=== PATIENT | female | born 1990 | race Caucasian/White ===

== ENCOUNTER 2016-08-25 16:49 | Emergency (ER) | payer OTHER ==
[2016-08-25 17:11] VITALS: BP 133/81; PULSE 94; RESP 20; TEMP 97.5
[2016-08-25] MEDS ORDERED: ORPHENADRINE 30 MG/ML 2 ML VIAL IM STA (17:32)
[2016-08-25] MEDS ORDERED: KETOROLAC 60 MG/2 ML VIAL IM STA (17:32)
--- NOTE | 2016-08-25 17:38 | ED ---
Back Pain HPI - General Chief Complaint: Back Pain/Injury Stated Complaint: Back Pain Time Seen by Provider: 08/25/16 17:11 Source: patient, RN notes reviewed, old records reviewed Limitations: no limitations - History of Present Illness Initial Comments: 26-year-old female presents to the ED chief complaint of right sided lower back pain while walking into work today. Patient reports that she was taking his Depakote work and felt a sudden twinge in her back. Patient denies any falls or recent causes for injury of her back. Patient states that she has no fever or chills, denies any pain rating down her legs. Patient reports that she could possibly be . She states that she lays starting her menstrual cycle. She denies any fever or chills, chest pain, shortness breath, abdominal pain, nausea or vomiting. - Related Data Previous Rx's Medication Instructions Recorded predniSONE 50 mg PO DAILY #5 tab 02/28/16 Cyclobenzaprine [Flexeril] 10 mg PO TID #12 tab 08/25/16 Allergies Allergy/AdvReac Type Severity Reaction Status Date / Time No Known Allergies Allergy Verified 08/25/16 17:11 Review of Systems ROS Statement: Those systems with pertinent positive or pertinent negative responses have been documented in the HPI. ROS Other: All systems not noted in ROS Statement are negative. Past Medical History Past Medical History: Asthma Additional Past Medical History / Comment(s): Anxiety History of Any Multi-Drug Resistant Organisms: None Reported Past Surgical History: Tonsillectomy Past Anesthesia/Blood Transfusion Reactions: No Reported Reaction Past Psychological History: Anxiety Smoking Status: Current some day smoker Past Alcohol Use History: None Reported Past Drug Use History: None Reported - Past Family History Father Family Medical History: No Reported History General Exam - General Exam Comments Initial Comments: Well-appearing 26-year-old female. No distress. Limitations: no limitations General appearance: alert, in no apparent distress Head exam: Present: atraumatic, normocephalic, normal inspection Eye exam: Present: normal appearance, PERRL, EOMI. Absent: scleral icterus, conjunctival injection, periorbital swelling ENT exam: Present: normal exam, mucous membranes moist Neck exam: Present: normal inspection. Absent: tenderness, meningismus, lymphadenopathy Respiratory exam: Present: normal lung sounds bilaterally. Absent: respiratory distress, wheezes, rales, rhonchi, stridor Cardiovascular Exam: Present: regular rate, normal rhythm, normal heart sounds. Absent: systolic murmur, diastolic murmur, rubs, gallop, clicks GI/Abdominal exam: Present: soft, normal bowel sounds. Absent: distended, tenderness, guarding, rebound, rigid Extremities exam: Present: normal inspection, full ROM, normal capillary refill. Absent: tenderness, pedal edema, joint swelling, calf tenderness Back exam: Present: normal inspection, muscle spasm (Right-sided lumbar muscle spasm), paraspinal tenderness (Right sided lumbar paraspinal tenderness.), vertebral tenderness Neurological exam: Present: alert, oriented X3, CN II-XII intact Psychiatric exam: Present: normal affect, normal mood Skin exam: Present: warm, dry, intact, normal color. Absent: rash Course Vital Signs 08/25/16 17:09 Temperature 97.5 F L Pulse Rate 94 Respiratory 20 Rate Blood Pressure 133/81 O2 Sat by Pulse 97 Oximetry Medical Decision Making - Medical Decision Making 26-year-old female presents to the ED chief complaint of right sided lower back pain while walking into work today. Patient reports that she was taking his DepCamileon Heelste work and felt a sudden twinge in her back. Patient denies any falls or recent causes for injury of her back. Patient states that she has no fever or chills, denies any pain rating down her legs. Patient's urine test is negative as well as no signs of urinary tract infection. Patient is given IM Toradol and Norflex. Discussed the patient likely has a muscle spasm. Patient was given medications and will be discharged with Flexeril. Patient will be given a note for work today. Patient understands treatment plan will comply. Return parameters were discussed. - Lab Data Lab Results 08/25/16 08/25/16 Range/Units 17:40 17:40 Urine Color Yellow Urine Appearance Clear (Clear) Urine pH 5.5 (5.0-8.0) Ur Specific [place] 1.014 (1.001-1.035) Urine Protein Negative (Negative) Urine Glucose (UA) Negative (Negative) Urine Ketones Negative (Negative) Urine Blood Negative (Negative) Urine Nitrite Negative (Negative) Urine Bilirubin Negative (Negative) Urine Urobilinogen <2.0 (<2.0) mg/dL Ur Leukocyte Esterase Small H (Negative) Urine RBC 2 (0-5) /hpf Urine WBC <1 (0-5) /hpf Ur Squamous Epith Cells 3 (0-4) /hpf Urine Bacteria Rare H (None) /hpf Urine Mucus Rare H (None) /hpf Urine HCG, Qual Not Detected (Not Detectd) Disposition Clinical Impression: Lumbar paraspinal muscle spasm Disposition: HOME SELF-CARE Condition: Good Instructions: Acute Low Back Pain (ED) Additional Instructions: Patient advised to apply heat and ice over the back. Take muscle x-rays as prescribed. Continue to take anti-inflammatory medication such as Motrin and Tylenol. Return to the emergency department if any alarming signs or symptoms occur. Prescriptions: Cyclobenzaprine [Flexeril] 10 mg PO TID #12 tab Referrals: Ekaterina Miranda DO [Primary Care Provider] - 1-2 days Time of Disposition: 17:58
[2016-08-25 17:51] LABS: Appearance,Urine Clear (Clear); Bacteria,Urine Rare /hpf; Bilirubin,Urine Negative (Negative); Glucose,Urine (UA) Negative (Negative); Ketones,Urine Negative (Negative); Leukocyte Esterase,Urine Small (Negative); Mucus,Urine Rare /hpf; Nitrite,Urine Negative (Negative); PH, Urine 5.5 (5.0-8.0); Particle Count 9826; Protein,Urine Negative (Negative); RBC,Urine 2 /hpf (0-5); Specific Gravity,Urine 1.014 (1.001-1.035); Squamous Epithelial Cell,Urine 3 /hpf (0-4); UA Billing (MACRO vs. MICRO) MICRO; Urobilinogen,Urine <2.0 mg/dL (<2.0); WBC,Urine <1 /hpf (0-5)
== END 2016-08-25 18:06 | disposition home or self-care (01) ==
LOC: EC 16:49
DX: M62.830 Muscle spasm of back (principal); F17.200 Nicotine dependence, unspecified, uncomplicated; X50.1XXA Overexertion from prolonged static or awkward postures, initial encounter; Y93.01 Activity, walking, marching and hiking
CPT/HCPCS: 81001; 81025; 99284; 96372 ×2; J2360; J1885

== ENCOUNTER 2017-07-25 08:06 | Emergency (ER) | payer OTHER ==
[2017-07-25 08:27] VITALS: BP 125/89; RESP 18; TEMP 98.3
[2017-07-25] MEDS ORDERED: IPRATROPIUM-ALBUTEROL 3 ML NEB INHALATION STA (08:38)
--- NOTE | 2017-07-25 08:43 | ED ---
General Adult HPI - General Chief complaint: Upper Respiratory Infection Stated complaint: Cough/chest cold Time Seen by Provider: 07/25/17 08:28 Source: patient, RN notes reviewed Mode of arrival: ambulatory Limitations: no limitations - History of Present Illness Initial comments: Patient was 27-year-old female significant past medical history for asthma, presenting to the emergency room today with a chief complaint of cough congestion over the last 3 or 4 days. She does not that her son was recently diagnosed with bronchitis. Patient does admit that she has had increased rhinorrhea was some cough congestion. Denies any specific sputum production color at this time. Patient states she is out of her inhaler at home. She states she does have access to a nebulizer machine. She states that she's felt warm. No recorded temperatures. Patient denies any recent shortness of breath, chest pain, back pain, abdominal pain, nausea or vomiting, numbness or tingling , headaches or visual changes, or any other complaints. - Related Data Previous Rx's Medication Instructions Recorded predniSONE 50 mg PO DAILY #5 tab 02/28/16 Cyclobenzaprine [Flexeril] 10 mg PO TID #12 tab 08/25/16 Albuterol Inhaler [Ventolin Hfa 1 - 2 puff INHALATION Q4-6H PRN #1 07/25/17 Inhaler] inhaler Albuterol Nebulized [Ventolin 2.5 mg INHALATION Q4H PRN 10 Days 07/25/17 Nebulized] nebu Azithromycin [Zithromax Z-pack] 0 mg PO DIRECTED #6 tab 07/25/17 Allergies Allergy/AdvReac Type Severity Reaction Status Date / Time No Known Allergies Allergy Verified 07/25/17 08:27 Review of Systems ROS Statement: Those systems with pertinent positive or pertinent negative responses have been documented in the HPI. ROS Other: All systems not noted in ROS Statement are negative. Past Medical History Past Medical History: Asthma Additional Past Medical History / Comment(s): Anxiety History of Any Multi-Drug Resistant Organisms: MRSA Date of last positivie culture/infection: 2018 MDRO Source:: breast Past Surgical History: Tonsillectomy Past Anesthesia/Blood Transfusion Reactions: No Reported Reaction Past Psychological History: Anxiety Smoking Status: Current some day smoker Past Alcohol Use History: None Reported Past Drug Use History: None Reported - Past Family History Father Family Medical History: No Reported History General Exam - General Exam Comments Initial Comments: General: The patient is awake and alert, in no distress, and does not appear acutely ill. Eye: Pupils are equal, round and reactive to light, extra-ocular movements are intact. No nystagmus. There is normal conjunctiva bilaterally. No signs of icterus. Ears, nose, mouth and throat: There are moist mucous membranes and no oral lesions. Neck: The neck is supple, there is no tenderness or JVD. Cardiovascular: There is a regular rate and rhythm. No murmur, rub or gallop is appreciated. Respiratory: Lungs are clear to auscultation, respirations are non-labored, breath sounds are equal. No wheezes, stridor, rales, or rhonchi. Musculoskeletal: Normal ROM, no tenderness. Strength 5/5. Sensation intact. Neurological: A&O x 3. CN II-XII intact, There are no obvious motor or sensory deficits. Coordination appears grossly intact. Speech is normal. Skin: Skin is warm and dry and no rashes or lesions are noted. Psychiatric: Cooperative, appropriate mood & affect, normal judgment. Limitations: no limitations Course Vital Signs 07/25/17 08:24 Temperature 98.3 F Pulse Rate 85 Respiratory 18 Rate Blood Pressure 125/89 O2 Sat by Pulse 98 Oximetry Medical Decision Making - Medical Decision Making Patient given breathing treatment here in the emergency room. Will be discharged home with albuterol inhaler along with medication for her nebulizer machine that she has access to. Steroids and antibiotic advised to use if symptoms are improving over the next 2 days. Patient declined x-ray at this time. She is advised follow-up family doctor return here to the emergency room symptoms increase or worsen or for any other concerns. Disposition Clinical Impression: Acute bronchitis Disposition: HOME SELF-CARE Condition: Good Instructions: Acute Bronchitis (ED) Additional Instructions: Please use medication as discussed. Please follow-up with family doctor in the next 2 days of symptoms have not improved. Please return to emergency room if the symptoms increase or worsen or for any other concerns. Prescriptions: Albuterol Inhaler [Ventolin Hfa Inhaler] 1 - 2 puff INHALATION Q4-6H PRN #1 inhaler PRN Reason: Cough Albuterol Nebulized [Ventolin Nebulized] 2.5 mg INHALATION Q4H PRN 10 Days nebu PRN Reason: Cough Azithromycin [Zithromax Z-pack] 0 mg PO DIRECTED #6 tab Is patient prescribed a controlled substance at d/c from ED?: No Referrals: Ekaterina Miranda DO [Primary Care Provider] - 1-2 days Time of Disposition: 08:42
[2017-07-25 09:09] VITALS: PULSE 77
== END 2017-07-25 09:34 | disposition home or self-care (01) ==
LOC: EC 08:06
DX: J20.9 Acute bronchitis, unspecified (principal); J45.909 Unspecified asthma, uncomplicated; F17.200 Nicotine dependence, unspecified, uncomplicated; Z86.14 Personal history of Methicillin resistant Staphylococcus aureus infection; Z53.29 Procedure and treatment not carried out because of patient's decision for other reasons
CPT/HCPCS: 94640; 99283

== ENCOUNTER → 2019-11-09 | Outpatient (CLI) | payer OTHER ==
--- NOTE | 2019-11-09 08:30 | US ---
EXAMINATION TYPE: US abdomen complete DATE OF EXAM: 11/09/2019 COMPARISON: NONE CLINICAL HISTORY: R10.2 pelvic pain, R11.0 Nausea. Cramping x 1 week EXAM MEASUREMENTS: Liver Length: 16.7 cm Gallbladder Wall: 0.2 cm CBD: 0.4 cm Spleen: 11.4 cm Right Kidney: 9.9 x 4.9 x 4.8 cm Left Kidney: 11.3 x 5.3 x 5.3 cm Difficult and limited study due to patient body habitus Pancreas: visualized portions wnl, limited by overlying midline bowel gas Liver: attenuating, heterogeneous, decreased visualization of vessels suggestive of fatty infiltrate Gallbladder: wnl Evidence for sonographic Reynolds's sign: no CBD: visualized portions wnl, limited by overlying bowel gas Spleen: wnl Right Kidney: wnl Left Kidney: wnl Upper IVC: wnl Abd Aorta: wnl The intrahepatic portion of the IVC and proximal abdominal aorta are within normal limits. There is no evidence of cholelithiasis. Common bile duct is unremarkable. The visualized portions of the mejia creas are homogenous. The spleen is unremarkable. Kidneys are symmetric and free of hydronephrosis. No renal lesions are seen. IMPRESSION: 1. Findings felt to reflect fatty hepatic infiltration.
--- NOTE | 2019-11-09 08:37 | US ---
EXAMINATION TYPE: US pelvic complete DATE OF EXAM: 11/09/2019 COMPARISON: NONE CLINICAL HISTORY: R10.2 pelvic pain, R11.0 Nausea. Cramping x 1 week, 2, para 1, 1 TECHNIQUE: . Transabdominal sonographic images of the pelvis were acquired. Date of LMP: about 3 weeks ago EXAM MEASUREMENTS: Uterus: 9.1 x 4.1 x 4.9 cm Endometrial Stripe: 1.0 cm Right Ovary: 2.8 x 1.8 x 1.7 cm Left Ovary: 3.5 x 2.2 x 2.2 cm 1. Uterus: anteverted, 1.5cm hypoechoic area anterior 2. Endometrium: appears wnl 3. Right Ovary: wnl 4. Left Ovary: wnl 5. Bilateral Adnexa: wnl 6. Posterior cul-de-sac: wnl IMPRESSION: Leiomyomatous change of the uterus.
== END | disposition home or self-care (01) ==
LOC: RADUSWWP 07:08
PROVIDERS: ATTEND Family Medicine
DX: D25.9 Leiomyoma of uterus, unspecified (principal); R10.2 Pelvic and perineal pain; R11.0 Nausea
CPT/HCPCS: 76700; 76856

== ENCOUNTER → 2020-03-12 | Outpatient (CLI) | payer OTHER ==
--- NOTE | 2020-03-12 14:53 | XR ---
EXAM TYPE: LUMBAR SPINE X RAY SERIES COMPARISON: NONE HISTORY: Pain TECHNIQUE: 4 views are submitted. FINDINGS: Alignment is anatomic. The pedicles are intact. The transverse processes are intact. There is no s pondylolisthesis. There is degenerative disc disease L5-S1 with mild hypertrophic changes. Hypertroph ic changes at the thoracolumbar junction noted. Spina bifida occulta of the sacrococcygeal junction. IMPRESSION: 1. Degenerative change lower lumbar spine.
--- NOTE | 2020-03-12 14:54 | XR ---
EXAMINATION TYPE: XR sacrum coccyx DATE OF EXAM: 03/12/2020 COMPARISON: NONE HISTORY: Pain Three views are submitted. Sacrum is intact. SI joints are symmetric. The distal margin the sacrum demonstrates absence of the lateral margin on the right and any linear cortical lucency through the l owest sacral foramen with sclerotic margins suggesting chronic injury or congenital deformity. Slight subluxation of the sacrococcygeal junction noted on the lateral view. This likely is chronic. IMPRESSION: 1. Chronic appearing deformity of the sacrum recommend either CT scan for further evaluation.
== END | disposition home or self-care (01) ==
LOC: RADXRMAIN 14:09
PROVIDERS: ATTEND Family Medicine
DX: M47.816 Spondylosis without myelopathy or radiculopathy, lumbar region (principal); M43.8X8 Other specified deforming dorsopathies, sacral and sacrococcygeal region; G89.29 Other chronic pain
CPT/HCPCS: 72100; 72220

== ENCOUNTER → 2020-03-22 | Outpatient (CLI) | payer OTHER ==
--- NOTE | 2020-03-22 12:48 | CT ---
EXAMINATION TYPE: CT lumbar spine wo con DATE OF EXAM: 03/22/2020 12:32 PM COMPARISON: Lumbar spine x-ray 10 days ago HISTORY: Low back pain, spina bifida, abnormal x-ray, sacral pain. CT DLP: 1756.9 mGycm Automated exposure control for dose reduction was used. Unenhanced CT of the lumbar spine was performed. Bone and soft tissue window settings are submitted as well as coronal and sagittal reconstructions. There are 5 lumbar-type vertebra demonstrated. There is mild disc space narrowing L4-L5 level redemon strated. There is more moderate disc space narrowing with mild anterior spurring at the L5-S1 level. Incidental mild to moderate disc space narrowing and mild anterior spurring at T11-T12 level. Spinal canal grossly preserved on sagittal images. Vertebral body heights maintained. No spina bifida defect identified in the lumbar spine or upper sacrum. Axial images show mild facet degenerative changes at L2-L3 level. Axial images at L3-L4 level mild facet degenerative changes bilaterally. There is focal central disc protrusion effacing the anterior thecal sac on image 49. Patent bilateral neural foramina. Axial images at the L4-L5 level show [id number] facet degenerative changes bilaterally. There i s broad disc bulge axial image 60. Patent bilateral neural foramina. Axial images at L5-S1 level show mild/moderate facet degenerative changes bilaterally. Small posterio r spur disc complex. Spinal canal preserved. Moderate bilateral neural foraminal narrowing is thought present due to foraminal disc herniation component. Paraspinal muscle bulk is maintained. IMPRESSION: Multilevel degenerative changes in the mid to lower lumbar spine as detailed above. Patie nt may benefit with MRI follow-up.
== END | disposition home or self-care (01) ==
LOC: RADCTMAIN 12:07
PROVIDERS: ATTEND Family Medicine
DX: M47.816 Spondylosis without myelopathy or radiculopathy, lumbar region (principal); M47.817 Spondylosis without myelopathy or radiculopathy, lumbosacral region
CPT/HCPCS: 72131

== ENCOUNTER → 2020-06-17 | Outpatient (CLI) | payer OTHER ==
[2020-06-17 13:28] LABS: Glucose 3 Hour, Gest 83 mg/dL
== END | disposition home or self-care (01) ==
LOC: LABWHC1 07:30
PROVIDERS: ATTEND Obstetrics & Gynecology
DX: O99.810 Abnormal glucose complicating pregnancy (principal); Z3A.00 Weeks of gestation of pregnancy not specified
CPT/HCPCS: 36415; 82951; 82952

== ENCOUNTER 2020-11-08 15:27 | Emergency (ER) | payer OTHER ==
--- NOTE | 2020-11-08 16:29 | ED ---
General Adult HPI - General Stated complaint: sent by pcp/infusion/covid+/32 wks preg - History of Present Illness Initial comments: Juliane is a 30yo F currently 32wks tested positive or COVID 2 days ago. Patient notified her technology adoption manager who advised her to come to the ER for treatment with monoclonal antibodies. She reports she began having symptoms on Wednesday, she was tested on Wednesday and was positive. She reports that she just had a mild cough and fatigue today she feels mildly shortness of breath with activity no chest pain. - Related Data Home Medications Medication Instructions Recorded Confirmed Acetaminophen Tab [Tylenol Tab] 500 mg PO Q6HR PRN 11/08/20 11/08/20 Albuterol Sulfate [Proair Hfa] 2 puff INHALATION RT-Q6H PRN 11/08/20 11/08/20 Fluticasone Nasal [place] [Flonase 1 spr EA NOSTRIL DAILY 11/08/20 11/08/20 Nasal [place]] diphenhydrAMINE [Benadryl] 25 mg PO DAILY PRN 11/08/20 11/08/20 Allergies Allergy/AdvReac Type Severity Reaction Status Date / Time No Known Allergies Allergy Verified 11/08/20 17:42 Review of Systems ROS Statement: Those systems with pertinent positive or pertinent negative responses have been documented in the HPI. ROS Other: All systems not noted in ROS Statement are negative. Past Medical History Past Medical History: Asthma Additional Past Medical History / Comment(s): Anxiety History of Any Multi-Drug Resistant Organisms: MRSA Date of last positivie culture/infection: 2017 MDRO Source:: breast Past Surgical History: Tonsillectomy Past Anesthesia/Blood Transfusion Reactions: No Reported Reaction Past Psychological History: Anxiety Past Alcohol Use History: None Reported Past Drug Use History: None Reported - Past Family History Father Family Medical History: No Reported History General Exam - General Exam Comments Initial Comments: Physical Exam GENERAL: Patient is well-developed and well-nourished. Patient is nontoxic and well-hydrated and is in no distress. HENT: Normocephalic, Atraumatic. EYES: PERRL, EOMI PULMONARY: Unlabored respirations. No respiratory distress CARDIOVASCULAR: RRR Warm and well perfused extremities ABDOMEN: Gravid uterus SKIN: No rashes or bruising : Deferred NEUROLOGIC: Alert and oriented Normal speech Normal gait MUSCULOSKELETAL: Moving all extremities with no apparent injury PSYCHIATRIC: No SI/HI Course Vital Signs 11/08/20 11/08/20 11/08/20 16:33 16:40 18:25 Temperature 99.3 F Pulse Rate 105 H 99 Respiratory 20 20 20 Rate Blood Pressure 130/85 128/78 O2 Sat by Pulse 97 98 Oximetry 11/08/20 11/08/20 18:30 20:32 Temperature 97.8 F Pulse Rate 92 Respiratory 20 Rate Blood Pressure 122/77 O2 Sat by Pulse 97 98 Oximetry Medical Decision Making - Medical Decision Making The patient was seen and evaluated, history was obtained from the patient, positive COVID test results were reviewed, monoclonal antibody infusion risks and benefits were discussed with the patient, she agrees to infusion, Monoclonal antibodies were ordered. Patient tolerated the infusion well without difficulty. Patient's OB recommended she have a CBC drawn which was drawn, there is no signs of anemia. She does have thrombocytopenia. Patient will leave here to go to the [facility] to have a nonstress test of the baby per her OBs recommendation - Lab Data Result diagrams: 11/08/20 19:28 Lab Results 11/08/20 Range/Units 19:28 WBC 4.8 (3.8-10.6) k/uL RBC 4.34 (3.80-5.40) m/uL Hgb 13.3 (11.4-16.0) gm/dL Hct 37.4 (34.0-46.0) % MCV 86.3 (80.0-100.0) fL MCH 30.6 (25.0-35.0) pg MCHC 35.4 (31.0-37.0) g/dL RDW 14.1 (11.5-15.5) % Plt Count 101 L (150-450) k/uL MPV 9.8 Neutrophils % 81 % Lymphocytes % 12 % Monocytes % 3 % Eosinophils % 0 % Basophils % 0 % Neutrophils # 3.9 (1.3-7.7) k/uL Lymphocytes # 0.6 L (1.0-4.8) k/uL Monocytes # 0.1 (0-1.0) k/uL Eosinophils # 0.0 (0-0.7) k/uL Basophils # 0.0 (0-0.2) k/uL Disposition Clinical Impression: COVID-19 affecting in third trimester Disposition: HOME SELF-CARE Condition: Stable Additional Instructions: Follow up with your OB for continued monitoring Obtain an pulse ox monitor, call 911 or return to the ER if your Oxygen is <92 Is patient prescribed a controlled substance at d/c from ED?: No Referrals: Luz Bledsoe MD [Primary Care Provider] - 1-2 days
[2020-11-08] MEDS ORDERED: ACETAMINOPHEN TAB 325 MG TAB PO STA (16:35)
[2020-11-08 16:41] VITALS: RESP 20
[2020-11-08] MEDS ORDERED: SODIUM CHLORIDE 0.9% 50 ML IVPB ONE (17:15)
[2020-11-08] MEDS ORDERED: CASIRIVIMAB/IMDEVIMAB (EUA) 1,200 MG in SODIUM CHLORIDE 0.9% 100 ML IVPB ONE (17:30)
[2020-11-08 19:35] LABS: Basophils % (A) 0 %; Eosinophils % (A) 0 %; HCT 37.4 % (34.0-46.0); HGB 13.3 gm/dL (11.4-16.0); Lymphocytes # (A) 0.6 k/uL (1.0-4.8); Lymphocytes % (A) 12 %; MCH 30.6 pg (25.0-35.0); MCHC 35.4 g/dL (31.0-37.0); MCV 86.3 fL (80.0-100.0); Mean Platelet Volume 9.8; Monocytes # (A) 0.1 k/uL (0-1.0); Monocytes % (A) 3 %; Neutrophils # (A) 3.9 k/uL (1.3-7.7); Neutrophils % (A) 81 %; Platelet Count 101 k/uL (150-450); RBC 4.34 m/uL (3.80-5.40); RDW 14.1 % (11.5-15.5); WBC 4.8 k/uL (3.8-10.6)
[2020-11-08 20:33] VITALS: BP 122/77; PULSE 92; TEMP 97.8
== END 2020-11-08 20:32 | disposition home or self-care (01) ==
LOC: EC 15:27
DX: O98.513 Other viral diseases complicating pregnancy, third trimester (principal); O99.513 Diseases of the respiratory system complicating pregnancy, third trimester; U07.1 COVID-19; J45.909 Unspecified asthma, uncomplicated; Z3A.32 32 weeks gestation of pregnancy
CPT/HCPCS: 36415; 85025; 99285; 96365; Q0243

== ENCOUNTER → 2021-03-17 | Outpatient (CLI) | payer OTHER ==
--- NOTE | 2021-03-18 05:47 | MR ---
EXAMINATION TYPE: MR lumbar spine wo con DATE OF EXAM: 03/17/2021 COMPARISON: None HISTORY: Low back pain that radiates down both legs. Multiplanar multiecho imaging of the lumbar spine without contrast. The lumbar vertebrae have normal alignment. There is some degenerative mild disc space narrowing and decreased signal in the disks at L4-5 and L5-S1. There is a posterior disc herniation in the midline at L5-S1. There is developmentally adequate spinal canal and no significant spinal stenosis. The lumb ar nerve roots appear normal. Neural foramina are fairly well-maintained. There is no lumbar paraspinal mass. There is no compression fracture. The sacroiliac joints appear in tact. There is no evidence of focal bone destruction. There is a small anterior lumbar disc herniatio n noted at L5-S1. IMPRESSION: Anterior and posterior disc herniations at L5-S1. No significant spinal stenosis. No fracture.
== END | disposition home or self-care (01) ==
LOC: RADMRIMAIN 20:00
PROVIDERS: ATTEND Family Medicine
DX: M51.17 Intervertebral disc disorders with radiculopathy, lumbosacral region (principal)
CPT/HCPCS: 72148

== ENCOUNTER → 2021-07-12 | Outpatient (CLI) | payer OTHER ==
[2021-07-12 11:13] LABS: Basophils # (A) 0.02 X 10*3/uL (0.00-0.10); Basophils % (A) 0.3 %; Eosinophils # (A) 0.06 X 10*3/uL (0.04-0.35); HCT 40.4 % (37.2-46.3); HGB 12.9 g/dL (12.0-15.0); Immature Grans, Automated 0.3 %; Lymphocytes # (A) 1.52 X 10*3/uL (0.90-5.00); Lymphocytes % (A) 26.4 %; MCH 27.1 pg (27.0-32.0); MCHC 31.9 g/dL (32.0-37.0); MCV 84.9 fL (80.0-97.0); Mean Platelet Volume 11.8 fL (9.5-12.2); Monocytes # (A) 0.32 X 10*3/uL (0.20-1.00); Monocytes % (A) 5.6 %; NRBC Per 100 WBC 0 /100 WBCS (0.0-0.0); Neutrophils # (A) 3.81 X 10*3/uL (1.80-7.70); Neutrophils % (A) 66.4 %; Platelet Count 195 X 10*3/uL (140-440); RBC 4.76 X 10*6/uL (4.10-5.20); WBC 5.75 X 10*3/uL (4.50-10.00)
[2021-07-12 11:38] LABS: African American GFR (CKD) 133.8 (60.0-200.0); Albumin 4.3 g/dL (3.8-4.9); Albumin/Globulin Ratio 1.65 (1.60-3.17); Anion Gap 9.9 mmol/L (10.00-18.00); BUN/Creat Ratio 17.43 Ratio (12.00-20.00); Blood Urea Nitrogen 12.2 mg/dL (9.0-27.0); Calcium 9.2 mg/dL (8.7-10.3); Carbon Dioxide 24.1 mmol/L (20.0-27.5); Globulin 2.6 g/dL (1.6-3.3); Non-African American GFR(CKD) 115.4 (60.0-200.0); T4, Free (Free Thyroxine) 1.1 ng/dL (0.800-1.800); Total Bilirubin 0.3 mg/dL (0.30-1.20); Total Protein 6.9 g/dL (6.2-8.2)
[2021-07-12 11:45] LABS: Thyroid Peroxidase Antibodies <9.0 U/mL (0.0-33.0)
[2021-07-12 11:52] LABS: Follicle Stimulating Hormone 4.4 mIU/mL; Luteinizing Hormone 11.8 mIU/mL
== END | disposition home or self-care (01) ==
LOC: LABWHC1 08:18
PROVIDERS: ATTEND Family Medicine
DX: F41.8 Other specified anxiety disorders (principal); E55.9 Vitamin D deficiency, unspecified; M47.816 Spondylosis without myelopathy or radiculopathy, lumbar region
CPT/HCPCS: 36415; 80053; 82024; 82306; 82533; 82607; 82670; 82746; 83001; 83002; 83036; 83835; 84439; 84443; 84481; 85025; 86376

== ENCOUNTER → 2021-08-29 | Outpatient (CLI) | payer OTHER ==
--- NOTE | 2021-08-29 15:40 | US ---
EXAMINATION TYPE: US abdomen complete DATE OF EXAM: 08/29/2021 COMPARISON: NONE CLINICAL HISTORY: N91.2 AMENORRHEA, UNSPECIFIED. general pain EXAM MEASUREMENTS: Liver Length: 20.1 cm Gallbladder Wall: 0.2 cm CBD: 0.5 cm Spleen: 11.9 cm Right Kidney: 10.9 x 5.2 x 5.0 cm Left Kidney: 12.8 x 4.3 x 4.9 cm bowel gas and habitus limits exam Pancreas: portions seen wnl Liver: difficult to penetrate and enlarged Gallbladder: wnl Evidence for sonographic Reynolds's sign: no CBD: wnl Spleen: wnl Right Kidney: wnl Left Kidney: wnl Upper IVC: wnl Abd Aorta: limited views IMPRESSION: 1. Moderate fatty infiltration of the liver. Hepatomegaly is present.
--- NOTE | 2021-08-29 15:41 | US ---
EXAMINATION TYPE: US pelvic complete DATE OF EXAM: 08/29/2021 COMPARISON: 11/09/2019 CLINICAL HISTORY: N91.2 AMENORRHEA, UNSPECIFIED. post 8 months, having depression and cycles s topped 3 months ago, not , , h/o fibroid removal TECHNIQUE: TA. Transabdominal sonographic images of the pelvis were acquired. Date of LMP: 3 months ago EXAM MEASUREMENTS: Uterus: 9.0 x 5.7 x 4.9 cm Endometrial Stripe: 1.8 cm Right Ovary: 1.9 x 2.0 x 1.6 cm Left Ovary: 2.7 x 2.1 x 1.9 cm 1. Uterus: Anteverted wnl 2. Endometrium: wnl 3. Right Ovary: wnl 4. Left Ovary: wnl 5. Bilateral Adnexa: wnl 6. Posterior cul-de-sac: wnl IMPRESSION: 1. Prominent endometrial stripe, thickened.
== END | disposition home or self-care (01) ==
LOC: RADUSWWP 14:43
PROVIDERS: ATTEND Family Medicine
DX: K76.0 Fatty (change of) liver, not elsewhere classified (principal)
CPT/HCPCS: 76700; 76856

== ENCOUNTER → 2022-08-14 | Outpatient (CLI) | payer OTHER ==
[2022-08-14 11:11] LABS: Glucose 2 Hour 138 mg/dL
== END | disposition home or self-care (01) ==
LOC: LABWHC1 07:08
PROVIDERS: ATTEND Obstetrics & Gynecology
DX: O24.419 Gestational diabetes mellitus in pregnancy, unspecified control (principal); Z3A.00 Weeks of gestation of pregnancy not specified
CPT/HCPCS: 36415; 82947; 82950

== ENCOUNTER → 2022-10-07 | Outpatient (CLI) | payer OTHER ==
--- NOTE | 2022-10-07 09:53 | XR ---
EXAMINATION TYPE: XR chest 2V DATE OF EXAM: 10/07/2022 COMPARISON: 02/28/2016 HISTORY: Chest pain TECHNIQUE: Frontal and lateral views of the chest are obtained. FINDINGS: There is no focal air space opacity. No evidence for pneumothorax. No pleural effusion. The cardiac silhouette size is within normal limits. The osseous structures are grossly intact. IMPRESSION: 1. No acute cardiopulmonary process.
== END | disposition home or self-care (01) ==
LOC: RADXRMAIN 09:08
PROVIDERS: ATTEND Nurse Practitioner Family
DX: R05.1 Acute cough (principal)
CPT/HCPCS: 71046